=== PATIENT | male | born 1985 | race Caucasian/White ===

== ENCOUNTER 2024-01-10 22:33 | Emergency (ER) | payer SELFPAY ==
[2024-01-10 22:35] VITALS: BP 130/87
--- NOTE | 2024-01-10 23:41 | ED.SKININJ ---
HPI-Injury
General
Chief Complaint: Head Injury
Source: patient
Exam Limitations: none
Time Seen by Provider: 01/10/24 23:22
History of Present Illness-Injury
Is this injury a work related problem?: No
Is pt an associate of [facility]/[place]?: No
Initial Injury comments:
This is a 38 year old male that comes in with c/o laceration to the left scalp. Friend with patient is interpreting and states that the patient was playing Soccer and he got elbowed to his head. States that there was a lot of blood so they thought
they better bring patient in. Denies any LOC. Denies any fever, chills, chest pain, SOB, abd pain, nausea, vomiting, diarrhea, headache, dizziness.
Past History
Past History
ED Past Medical History: None; Negative Asthma, HTN, Hypercholesterolemia or NIDDM
ED Past Surgical History: None
Social History
Tobacco: Smoker
Alcohol: Occasional
Personal: Single
Living: with family
Review of Systems
Review of Systems
All Other Systems: ROS reviewed and negative except as documented in HPI and ROS
Constitutional: Reports no symptoms; Denies fever or chills
EENT: Reports no symptoms
Respiratory: Reports no symptoms; Denies cough or trouble breathing
Cardiac: Reports no symptoms; Denies chest pain
ABD/GI: Reports no symptoms; Denies abdominal pain, nausea, vomiting or diarrhea
: Reports no symptoms
Musculoskeletal: Reports no symptoms
Skin: Reports other (laceration to the left scralp)
Neurological: Reports no symptoms; Denies dizzy or headache
Psychiatric: Reports no symptoms
Skin Exam
Laceration
Left Middle Lateral Scalp:
Length in cm: 4.5
Orientation: horizontal
Type of Laceration: simple
Any active bleeding?: low grade venous oozing
Distal skin color and temperature: normal-warm & good color
Normal distal neurovascular exam: Yes
Range of motion: full
Phy Exam
General Physical Exam
General Presentation: well appearing and no apparent distress
General age: appears stated age
General Skin: warm and dry
General Habitus: normal
General Mental: alert
General Hydration: appears well hydrated
Eye Exam
Eye Exam: EOMI
Musculoskeletal Exam
Musculoskeletal Exam: full ROM and other (negative cervical neck tenderness)
Skin Exam
Skin Exam: normal color, warm/dry, no petechia and laceration (To the left middle lateral scalp)
Psychiatric Exam
Psychiatric Exam: normal mood/affect
Course
Vital Signs
Initial and Last Documented VS:
Initial Vital Signs
Temp Pulse Resp BP Pulse Ox
98.2 F 92 18 130/87 98
01/10/24 22:35 01/10/24 22:35 01/10/24 22:35 01/10/24 22:35 01/10/24 22:35
Last Documented Vital Signs
Temp Pulse Resp BP Pulse Ox
98.2 F 92 18 130/87 98
01/10/24 22:35 01/10/24 22:35 01/10/24 22:35 01/10/24 22:35 01/10/24 22:35
Procedures
Laceration Closure
Left Middle Lateral Scalp:
Status of Wound: clean
Size of Wound in cm: 4.5
Description of Wound Edges: sharp
Preparation: cleaned with saline (and peroxide)
Revision/Debridement: routine- no revision
Wound exploration: explored to base- no FB
Type of Closure: other (donell)
Additional information:
5 donell used
MDM/Problems Addressed
Differential Diagnosis Includes:
scalp laceration
MDM/Problems Addressed:
This is a 38 year old male that comes in with c/o laceration. States that he was playing soccer and got hit in his head with an elbow.
Laceration cleaned and stapled. Offered patient a CT of the head but patient refused. Also offered a Dtap but patient again refused. Patient to follow up with the family doctor in 7 days for staple removal. Patient to return with headache not
relieved by Tylenol or vomiting more then twice, or any other concerns.
Chronic conditions affecting care:
NA
Acute Exacerbation and/or Progression of Chronic Illness:
NA
*Pulse Oximetry
Patient hypoxic: no
*EKG
Interpreted by ED Provider?: NA
Rate: EKG- N/A
*Local Truck Driver Interpretation
Rate: Local Truck Driver- N/A
*Critical Care Note
Total Time (30-74mins, 75-104mins- exclusive of procedures): Not Applicable
ED Attending Note
-
Portions of this chart may have been created with voice recognition software.� Occasional wrong word or��sound alike� substitutions may have occurred due to the inherent limitations of voice recognition software.
Discharge Plan
Departure
Patient Disposition: Home (Routine Discharge)
Date of Disposition: 01/10/24
Time of Disposition: 23:48
Patient with high blood pressure during this ER visit?: Yes
Condition: Good
Covid-19: Not Applicable
Discharge Problem:
Laceration of scalp
Instructions: Laceration Repair With Donell (DC), BLOOD PRESSURE
Activity Restrictions/Additional Instructions:
As discussed, you have 5 donell placed. Please keep this area dry for the next 24 hours. After this just gently pat the area with warm soapy water but do not scrub. Follow up with the family doctor in 7 days for donell to be removed. Tylenol for
any headache pain. IF YOU HAVE VOMITING MORE THEN TWICE, HEADACHE NOT RELIEVED BY TYLENOL OR YOU HAVE ANY OTHER CONCERNS PLEASE RETURN TO THE EMERGENCY ROOM .
Interventions
Interventions:
*General Assessment Last Done: 01/10/24 22:35
Discharge Date and Time
Print Language: FRENCH
[2024-01-11 00:07] VITALS: BP 130/87
== END 2024-01-11 00:20 | disposition home or self-care (01) ==
LOC: EMR 22:33
PROVIDERS: EMERGENCY PHYSICIAN Emergency Medicine
DX: S01.01XA Laceration without foreign body of scalp, initial encounter (principal); W50.0XXA Accidental hit or strike by another person, initial encounter; Y93.66 Activity, soccer; Y92.322 Soccer field as the place of occurrence of the external cause; R03.0 Elevated blood-pressure reading, without diagnosis of hypertension; F17.200 Nicotine dependence, unspecified, uncomplicated
CPT/HCPCS: 99282; 12002